=== PATIENT | female | born 1980 | race Caucasian/White ===

== ENCOUNTER 2023-09-12 05:25 | Day surgery (SDC) | payer BC ==
[2023-09-12] MEDS: Dextrose 5%-0.45% NaCl 1,000 ML IV SCH (05:49)
[2023-09-12] MEDS ORDERED: fentaNYL 100 MCG/2 ML SDV ONE (06:00)
[2023-09-12] MEDS ORDERED: Midazolam 1 MG/ML 2 ML SDV ONE (06:03)
[2023-09-12] MEDS: Midazolam 1 MG/ML 2 ML SDV IV ONE ×6 (06:24→06:31)
[2023-09-12] MEDS: fentaNYL 100 MCG/2 ML SDV IV ONE ×4 (06:24→06:40)
== END 2023-09-12 08:40 | disposition home or self-care (01) ==
LOC: DL.ENDO 05:25
PROVIDERS: ATTEND Internal Medicine Gastroenterology
DX: D12.0 Benign neoplasm of cecum (principal); I10 Essential (primary) hypertension; F32.A Depression, unspecified
CPT/HCPCS: J2250; J3010; J7042